=== PATIENT | female | born 1965 | race Two or more races ===

== ENCOUNTER 2017-11-20 11:18 | Outpatient (CLI) | payer OTHER ==
[~2017-11-20 11:18] MED LIST: ALLEGRA ALLERG180 MG PO; INTESTINEX680 MG PO; LAMICTAL100 M1 PO; MECLIZINE HCL25 MG PO; PROTONIX40 MG PO; ZOCOR20 MG PO
== END 2017-11-20 11:27 | disposition home or self-care (01) ==
LOC: RAD 501 11:18
DX: M79.641 Pain in right hand (principal); M79.642 Pain in left hand

== ENCOUNTER 2018-02-03 08:42 | Outpatient (CLI) | payer OTHER | END 2018-02-03 08:52 | disposition home or self-care (01) | LOC: SONOGRAMA 08:42 → MAMO-SONO 10:15 | DX: R22.1 Localized swelling, mass and lump, neck (principal) ==

== ENCOUNTER 2018-02-14 07:54 | Outpatient (CLI) | payer OTHER | END 2018-02-15 11:06 | disposition home or self-care (01) | LOC: RX STUDY 07:54 | DX: R13.14 Dysphagia, pharyngoesophageal phase (principal) ==

== ENCOUNTER 2018-04-23 10:37 | Outpatient (CLI) | payer OTHER | END 2018-04-23 12:49 | disposition home or self-care (01) | LOC: MAMO-SONO 10:37 | DX: Z12.31 Encounter for screening mammogram for malignant neoplasm of breast (principal) ==